=== PATIENT | male | born 1960 | race Caucasian/White ===

== ENCOUNTER 2018-06-03 06:38 | Day surgery (SDC) | payer OTHER ==
[~2018-06-03] VITALS: Ht 170.2 cm; Wt 77.1 kg
[2018-06-03 06:53] VITALS: BP 162/91
[2018-06-03 10:30] VITALS: BP 146/80
== END 2018-06-03 10:15 | disposition home or self-care (01) ==
LOC: DS 06:38 → OR 08:00 → GI 08:00 → DS 10:15
PROVIDERS: Internal Medicine Gastroenterology
PROC: 0DBM8ZZ Excision of Descending Colon, Via Natural or Artificial Opening Endoscopic (ICD-10-PCS; principal; 2018-06-03 08:00)
PROC: 0DBP8ZX Excision of Rectum, Via Natural or Artificial Opening Endoscopic, Diagnostic (ICD-10-PCS; 2018-06-03 08:00)
DX: Z12.11 Encounter for screening for malignant neoplasm of colon (principal); K64.8 Other hemorrhoids; K62.1 Rectal polyp; D12.4 Benign neoplasm of descending colon
CPT/HCPCS: 45378; G0500; J1200; J1610; J2250; J2310; J3010; J3490